=== PATIENT | female | born 1965 | race African-American/Black ===

== ENCOUNTER 2017-01-26 08:21 | Emergency (ER) | payer OTHER ==
[~2017-01-26] VITALS: Ht 157.5 cm; Wt 104.5 kg
[~2017-01-26 08:21] MED LIST: ESTR.3 PO; LISI-363 PO; LORA0.5T PO; LOVA10TA PO; OMEP20TA39 PO; POTA-243 PO
[2017-01-26 08:22] VITALS: BP 204/117; PULSE 63; RESP 16; TEMP 98; O2SAT 98
[2017-01-26] MEDS ORDERED: ESTR.3 PO (08:32)
[2017-01-26] MEDS ORDERED: OMEP40CA2 PO (08:32)
[2017-01-26] MEDS ORDERED: LORA-373 PO (08:32)
[2017-01-26] MEDS ORDERED: LISI10TA PO (08:32)
[2017-01-26 08:34] VITALS: BP 169/85; PULSE 61; RESP 18; O2SAT 99
[2017-01-26 09:00] VITALS: O2SAT 100
[2017-01-26] MEDS ORDERED: SODIUM CHLORIDE 0.9% FLUSH 10 ML FLUSH IVF PRN (09:00)
[2017-01-26] MEDS ORDERED: PROCHLORPERAZINE INJ 10 MG/2 ML VIAL IVP ONE (09:00)
[2017-01-26] MEDS ORDERED: hydrALAZINE HCL 20 MG/ML VIAL IV PUSH ONE (09:00)
--- NOTE | 2017-01-26 09:12 | PD ---
HPI Chief Complaint: Headache Time Seen by Provider: 08:48 Travel History International Travel<30 days: No Contact w/Intl Traveler<30days: No Traveled to known affect area: No History of Present Illness HPI This is a 51-year-old female with history of sarcoidosis, hypertension, who presents today with complaints of headache 3 days. Patient reports posterior occipital headache. She states it's been there since Tuesday and has not gone away. She states ibuprofen and other medications with no resolution. She's had headaches review sleep but states this one has not gone away. There is no photophobia. There is no nausea. She states that she had trouble sleeping. She states when she moves her head from side to side, it hurts worse. There is no neck stiffness. There is no sensory or muscle weakness. There are no other complaints time of my examination. PFSH Past Medical History Asthma: Yes Autoimmune Disease: Yes (SARCOIDOSIS) Blood Disorders: No Anxiety: Yes Cancer: No Cardiovascular Problems: Yes High Cholesterol: Yes Chest Pain: Yes Diminished Hearing: No Endocrine: No Gastrointestinal Disorders: Yes Genitourinary: No Hypertension: Yes Musculoskeletal: No Neurologic: No Respiratory: Yes Sleep Apnea: Yes (does not use CPAP AT HOME) Tetanus Vaccination: Unknown ?: Not : 3 Para: 1 Miscarriage: 2 Ectopic : Yes (TWICE) Past Surgical History Appendectomy: Yes (2012) Genitourinary Surgery: Yes Gynecologic Surgery: Yes (HYSTERECTOMY 2008) Hysterectomy: Yes Oral Surgery: Yes (LUNG BX) Other Surgery: Yes (RIGHT BREAST LUMPECTOMY 1995) Social History Alcohol Use: Yes (occassionally ) Tobacco Use: No Substance Use: No Allergies-Medications (Allergen,Severity, Reaction): Coded Allergies: Fish Containing Products (Unverified Allergy, Severe, HIVES, 01/26/17) lactose (Unverified Allergy, Severe, Nausea/Vomiting, 01/26/17) Reported Meds & Prescriptions Reported Meds & Active Scripts Active Reported Lorazepam 0.5 Mg Tab 0.5 Mg PO BID PRN Premarin (Estrogens Conjugated) 0.3 Mg Tab 0.3 Mg PO DAILY Omeprazole 40 Mg Cap 40 Mg PO DAILY Lisinopril-Hctz 10-12.5 Mg Tab 1 Tab PO DAILY Review of Systems Except as stated in HPI: all other systems reviewed are Neg General / Constitutional: No: Fever, Chills Eyes: No: Diploplia, Blurred Vision HENT: Positive: Headaches (right posterior), No: Lightheadedness, Neck Stiffness, Neck Pain Cardiovascular: No: Chest Pain or Discomfort, Palpitations Respiratory: No: Cough, Shortness of Breath Gastrointestinal: No: Nausea, Vomiting Genitourinary: No: Frequency, Dysuria Skin: No Rash, No Itching Neurologic: No: Weakness, Dizziness Psychiatric: No: Anxiety, Depression Physical Exam Narrative GENERAL: Well-developed well-nourished female in no acute respiratory distress. SKIN: Focused skin assessment warm/dry. HEAD: Atraumatic. Normocephalic. EYES: Pupils equal and round. Extraocular muscles appear intact. No scleral icterus. No injection or drainage. ENT: No nasal bleeding or discharge. Mucous membranes pink and moist. NECK: Trachea midline. No JVD. Supple. CARDIOVASCULAR: Regular rate and rhythm. No murmur appreciated. RESPIRATORY: No accessory muscle use. Clear to auscultation. Breath sounds equal bilaterally. GASTROINTESTINAL: Abdomen soft, non-tender, nondistended. Hepatic and splenic margins not palpable. MUSCULOSKELETAL: No obvious deformities. No clubbing. No cyanosis. No edema. NEUROLOGICAL: Awake and alert. No obvious cranial nerve deficits. Motor grossly within normal limits. Normal speech. PSYCHIATRIC: Appropriate mood and affect; insight and judgment normal. Data Data Last Documented VS Vital Signs Date Time Temp Pulse Resp B/P Pulse Ox O2 Delivery O2 Flow Rate FiO2 01/26/17 09:48 62 20 144/65 98 Room Air 01/26/17 08:22 98.0 Orders Complete Blood Count With Diff (01/26/17 08:48) Basic Metabolic Panel (Bmp) (01/26/17 08:48) Ct Brain W/O Iv Contrast(Rout) (01/26/17 08:48) Ecg Monitoring (01/26/17 08:48) Iv Access Insert/Monitor (01/26/17 08:48) Oximetry (01/26/17 08:48) Sodium Chloride 0.9% Flush (Ns Flush) (01/26/17 09:00) Prochlorperazine Inj (Compazine Inj) (01/26/17 09:00) Hydralazine Inj (Apresoline Inj) (01/26/17 09:00) Labs Laboratory Tests Test 01/26/17 08:50 White Blood Count 4.6 TH/MM3 Red Blood Count 4.37 MIL/MM3 Hemoglobin 13.3 GM/DL Hematocrit 38.2 % Mean Corpuscular Volume 87.4 FL Mean Corpuscular Hemoglobin 30.3 PG Mean Corpuscular Hemoglobin 34.7 % Concent Red Cell Distribution Width 13.5 % Platelet Count 179 TH/MM3 Mean Platelet Volume 9.3 FL Neutrophils (%) (Auto) 54.9 % Lymphocytes (%) (Auto) 31.9 % Monocytes (%) (Auto) 9.8 % Eosinophils (%) (Auto) 2.5 % Basophils (%) (Auto) 0.9 % Neutrophils # (Auto) 2.5 TH/MM3 Lymphocytes # (Auto) 1.5 TH/MM3 Monocytes # (Auto) 0.5 TH/MM3 Eosinophils # (Auto) 0.1 TH/MM3 Basophils # (Auto) 0.0 TH/MM3 CBC Comment DIFF FINAL Differential Comment Sodium Level 138 MEQ/L Potassium Level 3.2 MEQ/L Chloride Level 103 MEQ/L Carbon Dioxide Level 29.8 MEQ/L Anion Gap 5 MEQ/L Blood Urea Nitrogen 12 MG/DL Creatinine 0.91 MG/DL Estimat Glomerular Filtration 79 ML/MIN Rate Random Glucose 87 MG/DL Calcium Level 8.6 MG/DL MDM Medical Decision Making Medical Screen Exam Complete: Yes Emergency Medical Condition: Yes Differential Diagnosis Hypertensive urgency versus intracranial hemorrhage versus migraine versus tension headache Narrative Course 51 Year-old female with history of hypertension, presents to quite a headache since this weekend. The patient has not had a headache last this long. The patient has no focal deficits. She has no photophobia. Head CT is negative for acute process. I discussed with the patient that while head CT is sensitive , there is up to 6% of people that can have a small hemorrhage that is not picked up on CT scan. I informed her to be 100% sure that we would need to do a lumbar puncture. I described the lumbar puncture in detail as well as the risks and benefits and the patient has opted not to have a lumbar puncture. She states she understands that she could still have a small hemorrhage however states that she feels back to baseline with no pain and does not wish to undergo the lumbar puncture. She is instructed to return if she develops a recurrent headache, blurry vision, dizziness. The patient did have an elevated blood pressure was given 10 mg of hydralazine and 10 mg of Compazine. Her blood pressure at time of discharge was 144/65. She states that her physician had recently decreased her lisinopril by half. She is instructed to go back to the previous dose and to let her physician know that her blood pressure was high and that that was our recommendation. Diagnosis Primary Impression: Cephalgia Additional Impression: Hypertension Additional Instructions: Go back to your previous lisinopril dose. Call your physician and let them know that that was our recommendation. Monitor blood pressure and if Still elevated, follow up care physician. Return if pain returns or any other reason the concerns. Disposition: DISCHARGE HOME Condition: Stable Be Ahuja MD Jan 26, 2017 09:12
[2017-01-26 09:32] LABS: AUTOMATED NEUTROPHIL # 2.5 TH/MM3 (1.8-7.7); BASOPHIL % 0.9 % (0.0-2.0); EOSINOPHIL # 0.1 TH/MM3 (0-0.4); EOSINOPHIL % 2.5 % (0.0-4.0); HEMATOCRIT 38.2 % (35.0-46.0); HEMO FLAGS DIFF FINAL; LYMPH % 31.9 % (9.0-44.0); LYMPHOCYTE # 1.5 TH/MM3 (1.0-4.8); MEAN CELL VOLUME 87.4 FL (80.0-100.0); MEAN CORPUSCULAR HEMOGLOBIN 30.3 PG (27.0-34.0); MEAN CORPUSCULAR HGB CONC 34.7 % (32.0-36.0); MONO % 9.8 % (0.0-8.0); NEUT % 54.9 % (16.0-70.0); PLATELET COUNT 179 TH/MM3 (150-450); RED BLOOD COUNT 4.37 MIL/MM3 (4.00-5.30); RED CELL DISTRIBUTION WIDTH 13.5 % (11.6-17.2); WHITE BLOOD COUNT 4.6 TH/MM3 (4.0-11.0)
[2017-01-26 09:48] VITALS: BP 144/65; PULSE 62; RESP 20; O2SAT 98
--- NOTE | 2017-01-26 09:48 | RADRPT ---
EXAM DATE/TIME: 01/26/2017 09:19 [facility] COMPARISON: No previous studies available for comparison. INDICATIONS : Headache since tuesday RADIATION DOSE: 31.50 CTDIvol (mGy) MEDICAL HISTORY : Hypertension. SURGICAL HISTORY : Appendectomy. ENCOUNTER: Initial ACUITY: 4 - 6 days PAIN SCALE: 7/10 LOCATION: occiput area TECHNIQUE: Multiple contiguous axial images were obtained of the head. Using automated exposure control and adj ustment of the mA and/or kV according to patient size, radiation dose was kept as low as reasonably a chievable to obtain optimal diagnostic quality images. DICOM format image data is available electro nically for review and comparison. FINDINGS: CEREBRUM: The ventricles are normal for age. There is the small punctate area of increased density basalgangli a left side that could be small hemorrhage. No extra-axial fluid collections are seen. POSTERIOR FOSSA: The cerebellum and brainstem are intact. The 4th ventricle is midline. The cerebellopontine angle i s unremarkable. EXTRACRANIAL: The visualized portion of the orbits is intact. SKULL: The calvaria is intact. No evidence of skull fracture. CONCLUSION: Small possible hemorrhage basal ganglia left side. MRI may be of benefit. Keven Gant MD FACR on January 26, 2017 at 9:26 Board Certified Radiologist. This report was verified electronically.
[2017-01-26 09:54] LABS: BICARBONATE 29.8 MEQ/L (21.0-32.0); POTASSIUM 3.2 MEQ/L (3.5-5.1)
[2017-01-26 12:14] VITALS: BP 122/83
== END 2017-01-26 12:15 | disposition home or self-care (01) ==
LOC: NEPC 08:21
DX: R51 Headache (principal); I10 Essential (primary) hypertension; D86.9 Sarcoidosis, unspecified
CPT/HCPCS: 70450; 80048; 85025; 96374; 96375; 99285; J0360; J0780